=== PATIENT | female | born 1985 | race Caucasian/White ===

== ENCOUNTER 2016-06-25 00:23 | Inpatient (IN) | payer OTHER ==
[2016-06-25 01:11] LABS: ROM Internal QC QC Line Present
[2016-06-25 01:39] LABS: Hematocrit 35 % (35-47); Hemoglobin 11.6 g/dl (12.0-16.0); Mean Corpuscular HGB Conc 33 g/dl (31-36); Mean Corpuscular Hemoglobin 29 pg (27-31); Mean Corpuscular Volume 86 fL (80-97); Mean Platelet Volume 10 um3 (7.4-10.4); Red Blood Count 4.08 10^6/ul (4.0-5.4); Red Cell Distribution Width 14 % (10.5-15); White Blood Count 12.9 10^3/ul (3.5-10.8)
[2016-06-25] MEDS ORDERED: ceFOXitin 2 GM IVPREMIX* 2 GM/50 ML BAG ONE (01:50)
[2016-06-25] MEDS ORDERED: Sodium Citrate/Citric Acid* 15 ML UDC ONE (01:51)
[2016-06-25] MEDS ORDERED: Sodium Citrate/Citric Acid* 15 ML UDC PO ONE (02:06)
[2016-06-25] MEDS ORDERED: ceFOXitin 2 GM IVPREMIX* 2 GM/50 ML BAG IVPB ONE (02:06)
[2016-06-25] MEDS ORDERED: Morphine PF AMP (0.5MG/ML)* 5 MG/10 ML AMP ONE (02:38)
[2016-06-25] MEDS ORDERED: OXYTOCIN* 10 UNITS/ML 1 ML VIAL ONE (03:09)
[2016-06-25] MEDS ORDERED: Ondansetron INJ* 2 MG/ML VIAL ONE (03:14)
[2016-06-25] MEDS ORDERED: EPHEDrine (Pressors)* 50 MG/ML VIAL ONE (03:15)
[2016-06-25] MEDS ORDERED: Ketorolac INJ* 30 MG/ML 1 ML VIAL IV PRN (03:28)
[2016-06-25] MEDS ORDERED: Naloxone* 0.4 MG/ML 1 ML VIAL IV PRN (03:28)
[2016-06-25] MEDS ORDERED: oxyCODONE TAB* 5 MG TAB PO PRN (03:28)
[2016-06-25] MEDS ORDERED: Acetaminophen TAB* 325 MG PO PRN ×2 (03:28→19:00)
[2016-06-25] MEDS ORDERED: Nalbuphine* 20 MG/ML 1 ML VIAL IV PRN ×2 (03:30)
[2016-06-25] MEDS ORDERED: Glycerin ADULT SUPP PR PRN (03:57)
[2016-06-25] MEDS ORDERED: Dibucaine 1% 28.35 GM TUBE PR PRN (03:57)
[2016-06-25] MEDS ORDERED: Witch Hazel PAD* JAR TOPICAL PRN (03:57)
[2016-06-25] MEDS ORDERED: Oxytocin in LR* 20 UNITS/1,000 ML BAG IVPB SCH (04:00)
[2016-06-25] MEDS: Simethicone CHEW TAB* 80 MG PO SCH ×4 (08:05→21:05)
[2016-06-25] MEDS: Citalopram TAB* 40 MG PO SCH (08:05)
[2016-06-25] MEDS: Docusate CAP* 100 MG PO SCH ×3 (08:06→21:04)
[2016-06-25] MEDS: Ibuprofen TAB* 600 MG PO PRN ×3 (08:06→21:04)
[2016-06-25] MEDS ORDERED: diPHENhydraMINE PO* 50 MG PO PRN (11:13)
[2016-06-25] MEDS ORDERED: diPHENhydraMINE PO* 50 MG ONE (11:15)
--- NOTE | 2016-06-25 13:36 | OP ---
OPERATIVE REPORT: DATE OF OPERATION: 06/25/16 DATE OF : 85 SURGEON: Tapan Valles MD FURNACE TENDER: Nora Michele CNM ANESTHESIA: Spinal. PRE-OP DIAGNOSIS: Breech presentation, ruptured membranes, in early labor. POST-OP DIAGNOSIS: Breech presentation, ruptured membranes, in early labor. OPERATIVE PROCEDURE: Low transverse section. COMPLICATIONS: None. ESTIMATED BLOOD LOSS: 600 cc. FINDINGS: This is a 30-year-old 1, presented with spontaneous rupture of membranes at 11:30 p.m. and known breech. She was scanned and found to be still breech. At the time of , she had a viable female, Apgars were 9 and 9, weight was 7 pounds even. Normal appearing uterus, fallo pian tubes and ovaries. DESCRIPTION OF PROCEDURE: The patient identified and procedure identified as a low transverse shell mala section. The patient was taken to the operating room and prepped and draped in the usual fashio n in the left lateral recumbent position under spinal anesthesia. A Pfannenstiel incision was made in the abdomen, and carried down through fat, fascia and peritoneum. A transverse incision was made in the low uterine segment, extended laterally using the bandage scissors. The above was de livered through the incision in the breech extraction manner without difficulty. The cord was doubl y clamped and cut and the infant was handed to the awaiting professor of sociology. Cord blood was obtained. Placenta delivered spontaneously. The uterus was wiped out with a wet lap sponge. The uterine inci forest was closed using 0 Polysorb in a running fashion. A second layer was used to imbricate the fir st layer. The uterus was placed back into the abdominal cavity. The peritoneum was found to be hem ostatic. The peritoneum was then closed using 3-0 Polysorb in a running fashion. Good hemostasis w as achieved in the subrectus layers and the fascia was closed using 0 Polysorb in a running fashion. Good hemostasis was achieved in the subcu. Copious irrigation was utilized and suctioned out and the skin was closed with 4-0 Monocryl in a subcuticular fashion. All sponge and instrument counts w ere correct and the patient returned to the recovery room in stable condition. [id number]/[facility] #: [id number]
[2016-06-25] MEDS ORDERED: oxyCODONE/Acetamin 5/325 MG* TAB ONE (14:03)
[2016-06-25] MEDS ORDERED: oxyCODONE/Acetamin 5/325 MG* TAB PO PRN (14:30)
[2016-06-25] MEDS ORDERED: Zolpidem TAB* 5 MG PO PRN (19:00)
[2016-06-25] MEDS: oxyCODONE/Acetamin 5/325 MG* TAB PO PRN (23:49)
[2016-06-26] MEDS: Ibuprofen TAB* 600 MG PO PRN ×3 (03:38→16:24)
[2016-06-26] MEDS: oxyCODONE/Acetamin 5/325 MG* TAB PO PRN ×5 (04:46→21:37)
[2016-06-26 07:59] LABS: Hematocrit 31 % (35-47); Hemoglobin 10.4 g/dl (12.0-16.0); Mean Corpuscular HGB Conc 34 g/dl (31-36); Mean Corpuscular Hemoglobin 29 pg (27-31); Mean Corpuscular Volume 87 fL (80-97); Mean Platelet Volume 10 um3 (7.4-10.4); Red Blood Count 3.54 10^6/ul (4.0-5.4); Red Cell Distribution Width 14 % (10.5-15)
[2016-06-26] MEDS: Citalopram TAB* 40 MG PO SCH (08:25)
[2016-06-26] MEDS: Simethicone CHEW TAB* 80 MG PO SCH ×4 (08:25→21:37)
[2016-06-26] MEDS: Docusate CAP* 100 MG PO SCH ×3 (08:25→21:37)
[2016-06-26] MEDS: Ferrous Gluconate TAB* 324 MG TAB PO SCH ×2 (12:49→21:19)
[2016-06-27] MEDS: Ibuprofen TAB* 600 MG PO PRN ×4 (00:09→20:23)
[2016-06-27] MEDS: Citalopram TAB* 40 MG PO SCH (07:38)
[2016-06-27] MEDS: Docusate CAP* 100 MG PO SCH ×3 (07:38→20:24)
[2016-06-27] MEDS: oxyCODONE/Acetamin 5/325 MG* TAB PO PRN ×3 (07:38→20:24)
[2016-06-27] MEDS: Simethicone CHEW TAB* 80 MG PO SCH ×4 (07:39→20:24)
[2016-06-28] MEDS: Ibuprofen TAB* 600 MG PO PRN ×3 (04:07→17:32)
[2016-06-28] MEDS: oxyCODONE/Acetamin 5/325 MG* TAB PO PRN ×4 (04:41→17:33)
[2016-06-28 08:31] VITALS: BP 114/69
[2016-06-28] MEDS: Simethicone CHEW TAB* 80 MG PO SCH ×3 (08:55→17:33)
[2016-06-28] MEDS: Citalopram TAB* 40 MG PO SCH (08:56)
[2016-06-28] MEDS: Docusate CAP* 100 MG PO SCH ×2 (08:56→13:34)
== END 2016-06-28 18:04 | disposition home or self-care (01) | DRG 540 ==
LOC: MCHOBOUT 00:23 → MCHOB 01:15
PROVIDERS: ADMIT Obstetrics & Gynecology; ATTEND Obstetrics & Gynecology
PROC: 10D00Z1 Extraction of Products of Conception, Low, Open Approach (ICD-10-PCS; principal; 2016-06-25 02:41)
DX: O32.1XX0 Maternal care for breech presentation, not applicable or unspecified (principal); F33.9 Major depressive disorder, recurrent, unspecified; O99.344 Other mental disorders complicating childbirth; O42.02 Full-term premature rupture of membranes, onset of labor within 24 hours of rupture; F41.9 Anxiety disorder, unspecified; Z3A.38 38 weeks gestation of pregnancy; Z37.0 Single live birth
CPT/HCPCS: 36415; 76815; 84112; 85025; 85027; 86850; 86900; 86901; A9270-GY; J0694; J2405; J2590

== ENCOUNTER 2017-05-19 10:17 | Emergency (ER) | payer BC ==
[2017-05-19 11:06] VITALS: BP 104/64
--- NOTE | 2017-05-19 12:08 | UC ---
Respiratory Complaint HPI - HPI Summary HPI Summary: Patient presents with about one week of nonproductive cough, chest congestion and rhinitis. She denies fever, nausea, headache, body aches, sore throat, ear pain. No SOB. She is also concerned about given that she is several days late for her period this month. She has some mild beast tenderness. She has unprotected sex with her . - History of Current Complaint Chief Complaint: UCRespiratory Stated Complaint: COUGH Time Seen by Provider: 05/19/17 11:47 Hx Obtained From: Patient Hx Last Menstrual Period: 04/09 Onset/Duration: Gradual Onset, Lasting Days, Still Present Timing: Constant Severity Initially: Moderate Severity Currently: Moderate Pain Intensity: 0 Pain Scale Used: 0-10 Numeric Character: Cough: Nonproductive Aggravating Factors: Nothing Alleviating Factors: Nothing Associated Signs And Symptoms: Positive: URI, Nasal Congestion. Negative: Dyspnea, Fever, Wheezing - Allergies/Home Medications Allergies/Adverse Reactions: Allergies Allergy/AdvReac Type Severity Reaction Status Date / Time clindamycin Allergy Diarrhea Verified 05/19/17 11:06 PMH/Surg Hx/FS Hx/Imm Hx Psychological History: Anxiety - Surgical History Surgical History: Yes Surgery Procedure, Year, and Place: - Family History Known Family History: Negative: Hypertension - Social History Alcohol Use: None Substance Use Type: None Smoking Status (MU): Light Every Day Tobacco Smoker Type: Cigarettes Amount Used/How Often: 2pp Have You Smoked in the Last Year: No - quit prior to Household Exposure Type: Cigarettes Review of Systems Constitutional: Negative ENT: Nasal Discharge Respiratory: Cough Cardiovascular: Negative Gastrointestinal: Negative All Other Systems Reviewed And Are Negative: Yes Physical Exam Triage Information Reviewed: Yes Appearance: Well-Appearing, No Pain Distress, Well-Nourished Vital Signs: Initial Vital Signs Temp 98.1 F 05/19/17 11:01 Pulse 103 05/19/17 11:01 Resp 18 05/19/17 11:01 BP 104/64 05/19/17 11:01 Pulse Ox 98 05/19/17 11:01 Vital Signs Reviewed: Yes Eyes: Positive: Conjunctiva Clear ENT: Positive: Hearing grossly normal, Pharynx normal, TMs normal Neck: Positive: Supple, Nontender, No Lymphadenopathy Respiratory: Positive: No respiratory distress, No accessory muscle use, Wheezing - OCCASIONAL INSPIRATORY WHEEZE RIGHT SIDE. Negative: Decreased breath sounds Cardiovascular Exam: Normal Abdomen Description: Positive: Soft Musculoskeletal: Positive: No Edema Neurological: Positive: Alert Psychological: Positive: Age Appropriate Behavior Skin: Negative: rashes UC Diagnostic Evaluation - Laboratory O2 Sat by Pulse Oximetry: 98 Diagnostic Studies Comment: URINE POSITIVE Respiratory Course/Dx - Differential Dx/Diagnosis Provider Diagnoses: 1. ACUTE BRONCHITIS. 2. Discharge - Sign-Out/Discharge Documenting (check all that apply): Discharge - Discharge Plan Condition: Stable Disposition: HOME Prescriptions: Albuterol HFA INHALER* [Ventolin HFA Inhaler*] 2 puff INH Q4H PRN #1 mdi PRN Reason: Shortness Of Breath Inhaler, Assist Devices [Aerochamber Mini] 1 each MC Q4H #1 spacer Patient Education Materials: Acute Bronchitis (ED) Referrals: Chandni Orozco MD [Primary Care Provider] - If Needed Additional Instructions: YOUR SYMPTOMS ARE LIKELY VIRALLY MEDIATED AND SHOULD RESOLVE ON THEIR OWN WITH TIME. NO INDICATION FOR ANTIBIOTICS AT PRESENT. REST, HYDRATE, OTC MEDS NEEDED. WILL TREAT WITH INHALER TO HELP WITH AIRWAY INFLAMMATION. SEEK FOLLOW- UP IF YOU ARE NOT IMPROVING OVER THE NEXT 1-2 WEEKS. Your test today was positive. Be aware that illnesses tend to last longer during due to your immunocompromised state. Okay to take Tylenol for discomfort but no ibuprofen or naproxen products. Stay well hydrated. Start taking a vitamin with 200mg DHA. I like the [employer] brand. Go next door to [facility] right now to schedule your first appointment. - Billing Disposition and Condition Condition: STABLE Disposition: HOME
== END 2017-05-19 12:41 | disposition home or self-care (01) ==
LOC: UCEAST 10:17
DX: J20.9 Acute bronchitis, unspecified (principal); F41.9 Anxiety disorder, unspecified; Z33.1 Pregnant state, incidental; Z88.1 Allergy status to other antibiotic agents; F17.210 Nicotine dependence, cigarettes, uncomplicated
CPT/HCPCS: 84702; 99212; G0463

== ENCOUNTER 2018-01-14 02:00 | Inpatient (IN) | payer BC ==
[2018-01-14] MEDS ORDERED: Promethazine INJ(RESTRICTED)* 25 MG/ML 1 ML VIAL IV PRN (04:28)
[2018-01-14] MEDS ORDERED: Nalbuphine* 10 MG/ML 1 ML VIAL IV PRN (04:28)
--- NOTE | 2018-01-14 04:36 | HP ---
General Information - Reason for Visit Pt presents with gross SROM at midnight tonight. Was already having some ctx, and they have gotten more frequent since. Pain is only like menstrual cramps. Fluid was clear. Slight VB. Pt with h/o for a breech in 2017. Pt had planned a TOLAC if she went into labor. - General Information Maternal Age: 32 Grav: 2 Para: 1 SAB: 0 IEA: 0 Estimated Due Date: 01/16/18 Determined By: LMP Gestational Age in Weeks/Days: 39+5 Maternal Blood Type and Rh: A Positive - Results this Serology/RPR Result: Non-Reactive Rubella Result: Immune HBsAg Result: Negative HIV Result: Negative GBS Culture Result: Negative Past Medical History Delivery History: Hx C/Section, See Records Pertinent Past Medical History: See Records - depression/anxiety Pertinent Past Surgical History: See Records - Pertinent Family History: Non-Contributory - Antepartal Records Antepartal Records: Reviewed, Complicated by: - h/o C/S Review of Systems Constitutional: Comfortable CV Complaint: No Respiratory: Shortness of Breath: No Gastrointestinal: No Nausea/Vomiting, Normal Bowel Movement Genitourinary: Leaking Fluid, No Dysuria, No Bleeding Musculoskeletal: Contractions Neurological: No Headache, No Visual Changes Movement: Normal Exam Allergies/Adverse Reactions: Allergies clindamycin Allergy (Verified 05/19/17 11:06) Diarrhea T 98.7, BP 125/81, P78 - Measurements Height: 5 ft 2 in Weight: 150 lb Weight in lbs: 150.007148 Body Mass Index (BMI): 27.4 Pre- Weight: 125 lb Weight Gained This : 25 lbs and 0 ozs - Exam Breast: Breast Exam Deferred CVA: No CVA Tenderness Heart: Normal Rhythm/Heart Sounds HEENT: No Significant Findings Lungs: Clear Bilaterally Rectal: Rectal Exam Deferred - Abdominal Exam Abdomen Exam: Non-Tender, Fundal Height Consistent with Dates - Ultrasound/Biophysical Profile Ultrasound Status: Bedside Exam - Vertex presentation Targeted Exam Findings Estimated Weight: 7lb 5oz Cervical Exam: Fingertip Effacement: 60% Station: -2 Presenting Part: Vertex Membrane Status: Leaking Amniotic Fluid Evaluation: Gross Rupture Bleeding/Discharge: Bloody Show - mild EFM Findings - External Monitor Findings Baseline Heart Rate: 120 External Monitor Findings: Accelerations Present, No Pattern of Variable or Late Decelerations, Variability Moderate, Baseline Stable Contractions: Irregular, Mild Contraction Frequency: Q3-5 min Assessment/Plan - Assessment 39+5 wks with h/o presents with gross SROM about 4.5 hrs ago, very early labor. We discussed her plan, and after a lengthy discussion, she would like to continue with a trial of labor. We discussed the risks of a TOLAC including uterine rupture (<1% risk) and the possible need for an emergent . She understands the risk of injury to the from a uterine rupture is also low but cannot be eliminated. We will plan to keep her monitored the entire time she is in labor. Pt also understands that if at some point she changes her mind, we can still proceed with a C/S. All questions answered. - Obstetrical Risk Factors Obstetrical Risk Factors: Previous C/Section in Labor - Plan Plan: Admit - Anticipate Vaginal Delivery Plan Comment: Pt may want Nubain/Phenergan to help her sleep, so it has been ordered. - Date/Time of Admission Date of Admission: 01/14/18 Time of Admission: 04:41
[2018-01-14 04:56] LABS: ABS Basophils 0 10^3/ul (0-0.2); ABS Eosinophils 0 10^3/ul (0-0.6); ABS Lymphocytes 2.4 10^3/ul (1.0-4.8); ABS Monocytes 0.9 10^3/ul (0-0.8); ABS Neutrophils 10.7 10^3/ul (1.5-7.7); ABS Nucleated RBC 0 10^3/ul; Eosinophil % 0.2 % (0-6); Hematocrit 36 % (35-47); Hemoglobin 11.9 g/dl (12.0-16.0); Lymphocyte % 16.9 % (25-47); Mean Corpuscular HGB Conc 33 g/dl (31-36); Mean Corpuscular Hemoglobin 28 pg (27-31); Mean Corpuscular Volume 84 fL (80-97); Mean Platelet Volume 9.7 fL (7.4-10.4); Nucleated Red Blood Cells % 0; Platelet Count 201 10^3/ul (150-450); Red Blood Count 4.25 10^6/ul (4.00-5.40); Red Cell Distribution Width 14 % (10.5-15)
[2018-01-14] MEDS ORDERED: oxyCODONE/Acetamin 5/325 MG* TAB PO PRN (18:10)
[2018-01-14] MEDS ORDERED: ceFOXitin 2 GM IVPREMIX* 2 GM/50 ML BAG IVPB ONE (18:10)
[2018-01-14] MEDS ORDERED: Acetaminophen TAB* 325 MG PO PRN (18:10)
[2018-01-14] MEDS ORDERED: Witch Hazel PAD* JAR TOPICAL PRN (18:10)
[2018-01-14] MEDS ORDERED: ceFOXitin 2 GM IVPREMIX* 2 GM/50 ML BAG ONE (18:22)
[2018-01-14] MEDS ORDERED: fentaNYL* 50 MCG/ML 2 ML VIAL (100 MCG VIAL) ONE (18:32)
[2018-01-14] MEDS ORDERED: Morphine VIAL* 10 MG/ML 1 ML VIAL ONE (18:32)
[2018-01-14] MEDS ORDERED: Morphine PF AMP (0.5MG/ML)* 5 MG/10 ML AMP ONE (18:32)
[2018-01-14] MEDS ORDERED: KETAMINE HCL* 50 MG/ML 10 ML VIAL ONE (18:32)
[2018-01-14] MEDS ORDERED: Midazolam* 1 MG/ML 5 ML VIAL (5 MG) ONE (18:32)
[2018-01-14] MEDS ORDERED: Ketorolac INJ* 30 MG/ML 1 ML VIAL IV PUSH SCH (19:00)
[2018-01-14] MEDS ORDERED: DiMENhydriNATE IV* 50 MG/ML VIAL IV PUSH PRN (19:26)
[2018-01-14] MEDS ORDERED: fentaNYL* 50 MCG/ML 2 ML VIAL (100 MCG VIAL) IV PRN (19:26)
[2018-01-14] MEDS ORDERED: HYDROmorphone INJ1* 1 MG/ML SYRINGE IV PRN (19:26)
[2018-01-14] MEDS ORDERED: Naloxone* 0.4 MG/ML 1 ML VIAL IV PRN (19:26)
[2018-01-14] MEDS ORDERED: PROCHLORPERAZINE INJ 5 MG/ML 2 ML VIAL IV PRN (19:26)
[2018-01-14] MEDS ORDERED: HYDROmorphone INJ* 0.5 MG/0.5 ML SYRINGE IV PRN (20:00)
[2018-01-14] MEDS ORDERED: Dexamethasone IV* 4 MG/ML 1 ML (4 MG) ONE (20:04)
[2018-01-14] MEDS ORDERED: Ondansetron INJ* 2 MG/ML VIAL ONE (20:04)
[2018-01-14] MEDS ORDERED: Bupivacaine-MPF SPINAL* 7.5 MG/ML - 2ML AMP ONE (20:04)
[2018-01-14] MEDS ORDERED: EPHEDrine (Pressors)* 50 MG/ML VIAL ONE (20:04)
[2018-01-14] MEDS ORDERED: Scopolamine 1.5 mg* PATCH ONE (20:04)
[2018-01-14] MEDS ORDERED: Bupivacaine 0.25% SDV PF* 10 ML VIAL INJ ONE (20:04)
[2018-01-14] MEDS ORDERED: OXYTOCIN* 10 UNITS/ML 1 ML VIAL ONE (20:04)
[2018-01-14] MEDS ORDERED: Ketorolac INJ* 30 MG/ML 1 ML VIAL ONE (20:04)
[2018-01-14] MEDS ORDERED: PROCHLORPERAZINE INJ 5 MG/ML 2 ML VIAL ONE (20:04)
[2018-01-14] MEDS ORDERED: Phenylephrine INJ* 10 MG/ML 1 ML VIAL (10 MG) ONE (20:05)
[2018-01-14] MEDS: oxyCODONE/Acetamin 5/325 MG* TAB PO PRN (22:47)
[2018-01-14] MEDS: Docusate CAP* 100 MG PO SCH (22:47)
[2018-01-14] MEDS: Simethicone TAB* 80 MG TAB.CHEW PO SCH (22:47)
--- NOTE | 2018-01-15 00:51 | OP ---
ATE OF OPERATION: 01/14/18 - ROOM #105 DATE OF : 85 SURGEON: Justina Schwab MD LOG FEEDER: Emilee Caldwell CNM ANESTHESIOLOGIST: Dr. Keen. ANESTHESIA: Spinal. PRE-OP DIAGNOSIS: 39 + 5 weeks' gestation with spontaneous rupture of membranes and failed trial of labor after . POST-OP DIAGNOSIS: 39 + 5 weeks' gestation with spontaneous rupture of membranes and failed trial of labor after . OPERATIVE PROCEDURE: Repeat low transverse section. ESTIMATED BLOOD LOSS: 700 cc. URINE OUTPUT: 100 cc. IV FLUIDS: 1700 cc lactated ringers. MATERIALS TO LAB: Cord blood. INDICATIONS: This patient was a 32-year-old 2, para 1 who presented earlier this morning after she had spontaneous rupture of membranes and was in early labor. The patient's contractions were fairly frequent initially. The patient had a history of a previous section for a breech infant and during her had been counseled regarding her delivery options. We discussed them again when she presented and after discussion, she desired to continue laboring. Her cervix was barely 1 cm dilated on admission and about 14 hours later she had only progressed to 2 cm with contractions that were decreasing in frequency. At that point, the patient desired to discontinue this attempt at vaginal delivery and proceed to a . She was extensively counseled and consent was signed. FINDINGS: Normal appearing uterus, fallopian tubes, and ovaries. Moderate amount of adhesions from the bladder to the anterior and left uterus. Delivery was productive of a 7-pound male with Apgars of 9 and 9. Time of delivery was 1928. COMPLICATIONS: None. DESCRIPTION OF PROCEDURE: The risks, benefits, and alternatives were described to the patient, and informed consent was obtained. The patient was taken to the operating room with IV running, where spinal anesthesia was induced and found to be adequate. The patient was prepped and draped in the normal sterile fashion in the dorsal supine position with a leftward tilt. A Pfannenstiel skin incision was made with a scalpel through the patient's previous incision. This was carried down to the underlying fascia using the scalpel. The fascia was scored in the midline, and the incision was extended using Richardson scissors. The fascia was dissected off the underlying rectus muscles using blunt and sharp dissection. The rectus muscles were in the midline using dissection with a Kaylan clamp. The peritoneum was then entered sharply. A bladder blade was placed. After dissecting down the bladder from the anterior and left uterus, a bladder flap was created sharply using Metzenbaum scissors. A low transverse uterine incision was then made with the scalpel. This was carried down to the amniotic membranes. Clear fluid was present. The uterine incision was extended using blunt traction. The head was elevated to the level of the incision, and, with fundal pressure, the head delivered without difficulty. The shoulders then were also both delivered and the body followed. The had excellent tone and cried immediately on delivery. The cord was doubly clamped and cut. The infant was then handed to the awaiting pack mule worker. Cord blood was collected. The placenta was delivered with manual extraction. The uterus was then exteriorized and cleared of all clots and debris. The uterine incision was then reapproximated using 0 Vicryl in a running-locked fashion. A second layer of imbricating 0 Vicryl sutures was then also placed for good hemostasis. The posterior cul-de-sac was irrigated with saline. The uterus was then returned to the abdomen. The incision was reinspected and still noted to be hemostatic. The peritoneum was closed with 3-0 Vicryl in a running fashion. The fascia was closed with 0 Polysorb in a running fashion. The subcutaneous tissues were copiously irrigated and made hemostatic using the Bovie. The subcutaneous tissues were then reapproximated using 3-0 Vicryl in interrupted sutures. The skin was then closed with 4-0 Monocryl. Mastisol and steristrips were then applied. A sterile bandage was then placed over the incision. The patient tolerated the procedure well. Sponge, lap, and needle counts were correct x2. [id number]/[facility] #: [id number] [facility]
[2018-01-15] MEDS: Ketorolac INJ* 30 MG/ML 1 ML VIAL IV PUSH SCH ×3 (02:01→13:59)
[2018-01-15] MEDS: oxyCODONE/Acetamin 5/325 MG* TAB PO PRN ×3 (04:00→18:52)
[2018-01-15 06:40] LABS: ABS Basophils 0.1 10^3/ul (0-0.2); ABS Eosinophils 0 10^3/ul (0-0.6); ABS Lymphocytes 1.7 10^3/ul (1.0-4.8); ABS Monocytes 0.9 10^3/ul (0-0.8); ABS Neutrophils 18.9 10^3/ul (1.5-7.7); ABS Nucleated RBC 0 10^3/ul; Eosinophil % 0 % (0-6); Hematocrit 31 % (35-47); Hemoglobin 10.2 g/dl (12.0-16.0); Lymphocyte % 7.8 % (25-47); Mean Corpuscular HGB Conc 33 g/dl (31-36); Mean Corpuscular Hemoglobin 28 pg (27-31); Mean Corpuscular Volume 85 fL (80-97); Mean Platelet Volume 10.1 fL (7.4-10.4); Nucleated Red Blood Cells % 0; Platelet Count 182 10^3/ul (150-450); Red Blood Count 3.68 10^6/ul (4.00-5.40); Red Cell Distribution Width 14 % (10.5-15); White Blood Count 21.6 10^3/ul (3.5-10.8)
[2018-01-15] MEDS: Docusate CAP* 100 MG PO SCH ×3 (07:58→21:01)
[2018-01-15] MEDS: Simethicone TAB* 80 MG TAB.CHEW PO SCH ×4 (07:58→21:01)
[2018-01-15] MEDS ORDERED: Ferrous Gluconate TAB* 324 MG TAB PO SCH (09:00)
[2018-01-15] MEDS: Citalopram TAB* 10 MG PO SCH (10:08)
[2018-01-15] MEDS: Ibuprofen TAB* 600 MG PO PRN (21:01)
[2018-01-16] MEDS: oxyCODONE/Acetamin 5/325 MG* TAB PO PRN ×3 (00:31→20:19)
[2018-01-16] MEDS: Simethicone TAB* 80 MG TAB.CHEW PO SCH ×4 (07:41→21:01)
[2018-01-16] MEDS: Ibuprofen TAB* 600 MG PO PRN ×3 (07:41→23:30)
[2018-01-16] MEDS: Docusate CAP* 100 MG PO SCH ×3 (07:41→21:01)
[2018-01-16] MEDS: Citalopram TAB* 10 MG PO SCH (08:17)
[2018-01-17] MEDS: Docusate CAP* 100 MG PO SCH (07:39)
[2018-01-17] MEDS: oxyCODONE/Acetamin 5/325 MG* TAB PO PRN ×2 (07:39→13:45)
[2018-01-17] MEDS: Simethicone TAB* 80 MG TAB.CHEW PO SCH ×2 (07:39→12:11)
[2018-01-17 08:00] VITALS: BP 111/58
[2018-01-17] MEDS: Ibuprofen TAB* 600 MG PO PRN (10:58)
[2018-01-17] MEDS: Citalopram TAB* 10 MG PO SCH (12:10)
[2018-01-17] MEDS ORDERED: Scopolamine PATCH Remove* 1 NOTE MISC PATCH OFF ONE (19:27)
== END 2018-01-17 15:07 | disposition home or self-care (01) | DRG 540 ==
LOC: MCHOBOUT 02:00 → MCHOB 03:36
PROVIDERS: ADMIT Obstetrics & Gynecology; ATTEND Obstetrics & Gynecology
PROC: 10D00Z1 Extraction of Products of Conception, Low, Open Approach (ICD-10-PCS; principal; 2018-01-14 18:59)
DX: O66.41 Failed attempted vaginal birth after previous cesarean delivery (principal); O99.344 Other mental disorders complicating childbirth; F41.8 Other specified anxiety disorders; Z3A.39 39 weeks gestation of pregnancy; Z37.0 Single live birth
CPT/HCPCS: 36415; 85025; 86850; 86900; 86901; A9270-GY; J0694; J0780; J1100; J1885; J2250; J2270; J2300; J2405; J2550; J2590; J3010; J3490

== ENCOUNTER 2018-06-19 17:28 | Emergency (ER) | payer BC ==
[2018-06-19 18:47] VITALS: BP 123/87
[2018-06-19] MEDS ORDERED: Fluorescein Sodium TOPICAL* 1 MG TEST STRIP OPHTHALMIC ONE (19:16)
[2018-06-19] MEDS ORDERED: Tetracaine 0.5% OPTH.SOL 4 ML* 1 DROP BTL LEFT EYE ONE (19:16)
--- NOTE | 2018-06-19 19:18 | UC ---
Eye Complaint HPI - HPI Summary HPI Summary: Vision grossly intact. Tetracaine and fluorosceine instilled into left eye. Examined under magnification with Wood's lamp. Large corneal abrasion noted ( see diagram) that does involve the upper portion of her field of vision. Upper and lower lids everted. No FB noted. - History of Current Complaint Chief Complaint: UCEye Stated Complaint: EYE IRRITATION Time Seen by Provider: 06/19/18 19:10 Hx Obtained From: Patient Hx Last Menstrual Period: 04/09 Pain Intensity: 8 Eyes: 1 - Right eye 2 - Left eye 3 - Large corneal abrasion without evidence of FB - Allergies/Home Medications Allergies/Adverse Reactions: Allergies Allergy/AdvReac Type Severity Reaction Status Date / Time clindamycin AdvReac Diarrhea Verified 06/19/18 18:47 PMH/Surg Hx/FS Hx/Imm Hx Previously Healthy: Yes Psychological History: Depression - Surgical History Surgical History: Yes Surgery Procedure, Year, and Place: - Family History Known Family History: Positive: Non-Contributory - Social History Occupation: Employed Full-time Lives: With Family Alcohol Use: None Substance Use Type: None Smoking Status (MU): Former Smoker Type: Cigarettes Amount Used/How Often: 2pp Have You Smoked in the Last Year: No - quit prior to When Did the Patient Quit Smoking/Using Tobacco: 9 months ago Household Exposure Type: Cigarettes - Immunization History Most Recent Influenza Vaccination: 2018 Most Recent Pneumonia Vaccination: unknown Review of Systems All Other Systems Reviewed And Are Negative: Yes Constitutional: Positive: Negative Skin: Positive: Negative Eyes: Positive: Eye Redness, Photophobia, Other - Tearing, FB sensation. Negative: Blurred Vision, Diplopia ENT: Positive: Negative Respiratory: Positive: Negative Cardiovascular: Positive: Negative Gastrointestinal: Positive: Negative Genitourinary: Positive: Negative Musculoskeletal: Positive: Negative Neurological: Positive: Negative Is Patient Immunocompromised?: No Physical Exam Triage Information Reviewed: Yes Appearance: Well-Appearing, Well-Nourished, Pain Distress - Patient appears uncomfortable covering her left eye Vital Signs: Initial Vital Signs Temp 97.8 F 06/19/18 18:41 Pulse 85 06/19/18 18:41 Resp 18 06/19/18 18:41 BP 123/87 06/19/18 18:41 Pulse Ox 100 06/19/18 18:41 Vital Signs Reviewed: Yes Eyes: Positive: Other: - Conjunctival erythema with tearing. EOM intact. PERRL. Vision grossly intact. Tetracaine and fluorosceine instilled into left eye. Examined under magnification with Wood's lamp. Large corneal abrasion noted ( see diagram) that does involve the upper portion of her field of vision. Upper and lower lids everted. No FB noted. ENT: Positive: Normal ENT inspection Neck: Positive: Supple, Nontender, No Lymphadenopathy Respiratory: Positive: Lungs clear, Normal breath sounds, No respiratory distress Cardiovascular: Positive: RRR, No Murmur Abdominal Exam: Normal Musculoskeletal Exam: Normal Neurological Exam: Normal Eye Complaint Course/Dx - Course Course Of Treatment: 32-year-old female presents with complaints of left eye pain. States her daughter accidentally poked in her eye with the corner of a book earlier this afternoon. Complains of burning, foreign body sensation, tearing, and photophobia. Denies visual disturbances. Afebrile. Vital signs stable. Exam showed left eye conjunctival erythema with tearing. Extraocular eye movements intact. PERRL. Vision grossly intact. Tetracaine and fluorosceine instilled into left eye. Examined under magnification with Wood's lamp. Large corneal abrasion noted (see diagram) that does involve the upper portion of her field of vision. Upper and lower lids everted. No FB noted. She was given ibuprofen 600 mg PO for pain and erythromycin ophthalmic ointment was instilled and dispensed for home to be used 4 times a day for the next 5 days. She is to follow-up with ophthalmology within the next 2 days. She is to call first thing in the morning for an appointment. Anticipatory guidance and warning symptoms were reviewed with the patient. Verbalizes understanding and agrees with plan of care. - Differential Dx/Diagnosis Differential Diagnosis/HQI/PQRI: Corneal Abrasion, Foreign Body, Penetrating Injury Provider Diagnosis: Injury of conjunctiva and corneal abrasion of left eye w/o FB Discharge - Sign-Out/Discharge Documenting (check all that apply): Patient Departure All imaging exams completed and their final reports reviewed: No Studies - Discharge Plan Condition: Stable Disposition: HOME Patient Education Materials: Corneal Abrasion (ED) Referrals: Chandni Orozco MD [Primary Care Provider] - Deny Dejesus MD [Medical Doctor] - 2 Days (Call tomorrow morning for an appointment.) Additional Instructions: Your exam revealed an abrasion of the cornea of your right eye. Use the erythromycin ointment that was provided to you in the clinic. Instill a small strip to the inner lower eyelid and blink to spread the ointment around the eye. You will need to do this 4 times a day for the next 5 days. Use ibuprofen (Advil, Motrin) 600 mg (3 tabs) every 8 hours as needed for pain. You were given a dose of this in the clinic at 7:30 pm. Follow up with ophthalmology within 2 days for recheck of the eye. Call tomorrow morning for an appointment. Seek immediate medical attention in the emergency room if you have worsening eye pain despite taking pain medication, have visual loss or disturbances, swelling of the eye, or any worsening of symptoms. - Billing Disposition and Condition Condition: STABLE Disposition: Home
[2018-06-19] MEDS ORDERED: Erythromycin OPTH OINT* APPLIC OINT LEFT EYE ONE (19:33)
[2018-06-19] MEDS ORDERED: Ibuprofen TAB* 600 MG PO ONE (19:35)
== END 2018-06-19 19:55 | disposition home or self-care (01) ==
LOC: UCEAST 17:28
DX: S05.02XA Injury of conjunctiva and corneal abrasion without foreign body, left eye, initial encounter (principal); Z87.891 Personal history of nicotine dependence; Z88.8 Allergy status to other drugs, medicaments and biological substances; W50.0XXA Accidental hit or strike by another person, initial encounter
CPT/HCPCS: 99212; A9270-GY; G0463

== ENCOUNTER 2023-12-25 08:56 | Inpatient (IN) ==
[2023-12-25] MEDS: Lactated Ringers 1000 ml BAG 1,000 ML IV ONE (10:03)
[2023-12-25 10:16] LABS: ABS Basophils 0.1 10^3/uL (0.0-0.1); ABS Lymphocytes 1.9 10^3/uL (1.0-4.8); ABS Monocytes 0.8 10^3/uL (0.0-0.9); ABS Neutrophils 10.2 10^3/uL (1.5-7.6); Eosinophil % 0.3 %; Hematocrit 40.1 % (35-45); Hemoglobin 13.4 g/dL (11.5-14.3); Lymphocyte % 14.3 %; Mean Corpuscular Hgb Conc 33.5 g/dL (31-36); Mean Corpuscular Volume 86.6 fL (80-97); Mean Platelet Volume 10.6 fL (7.5-11.2); Platelet Count 226 10^3/uL (150-450); Red Blood Count 4.63 10^6/uL (3.63-4.92); Red Cell Distribution Width 13.9 % (12-17); White Blood Count 12.9 10^3/uL (3.8-11.8)
[2023-12-25] MEDS ORDERED: Nalbuphine 10 MG/ML 1 ML VIAL IV PRN (10:29)
[2023-12-25] MEDS ORDERED: Lidocaine 1% VIAL 10 MG/ML 30 ML VIAL INJ PRN (10:29)
[2023-12-25] MEDS ORDERED: Prochlorperazine 5 mg/ml 2 ml VIAL (10 mg) IV PRN ×2 (10:29→14:28)
[2023-12-25] MEDS: Terbutaline INJ 1 MG/ML 1 ml VIAL SUBCUT ONE (10:51)
[2023-12-25] MEDS: Lactated Ringers 1000 ml BAG 1,000 ML IV SCH (10:56)
[2023-12-25 11:32] LABS: Urine Benzodiazepine Screen None Detected (None Detect); Urine Cannabinoids Screen None Detected (None Detect); Urine Opiates Screen None Detected (None Detect)
[2023-12-25] MEDS: Buffered Lidocaine 1% SYRIN 1 ml INTRADERM ONE (12:14)
[2023-12-25] MEDS: Sodium Citrate/Citric Acid LIQ 15 ML UDC ONE (12:27)
[2023-12-25] MEDS: Sodium Citrate/Citric Acid LIQ 15 ML UDC PO ONE (12:47)
[2023-12-25] MEDS ORDERED: Acetaminophen IV 1 GM/100ML 1,000 MG/100 ML BAG IV ONE (13:08)
[2023-12-25] MEDS ORDERED: Ondansetron 4 mg VIAL 2 MG/ML 2 ml VIAL ONE (13:09)
[2023-12-25] MEDS: ceFOXitin 2 GM IVPREMIX 2 GM/50 ML BAG IVPB ONE (13:40)
[2023-12-25] MEDS ORDERED: Oxytocin 10 UNITS/ML 1 ML VIAL ONE (14:11)
[2023-12-25] MEDS ORDERED: fentaNYL 100 mcg/2 ml 50 MCG/ML VIAL IV PRN (14:28)
[2023-12-25] MEDS ORDERED: HYDROmorphone 1 MG/1 ML SYRINGE IV PRN (14:28)
[2023-12-25] MEDS ORDERED: Naloxone 0.4 mg VIAL 0.4 mg/ml 1 ml VIAL IV PRN (14:28)
[2023-12-25] MEDS ORDERED: Dexamethasone IV 4 MG/ML VIAL 1 ml VIAL ONE (14:35)
[2023-12-25] MEDS ORDERED: Witch Hazel PAD JAR TOPICAL PRN (14:57)
[2023-12-25] MEDS ORDERED: Dibucaine 1% OINT 28.35 GM TUBE PR PRN (14:57)
[2023-12-25] MEDS ORDERED: Glycerin ADULT 2.4 gm SUPP PR PRN (14:57)
[2023-12-25] MEDS ORDERED: Lactated Ringers 1000 ml BAG 1,000 ML IV SCH (15:00)
[2023-12-25] MEDS ORDERED: Ondansetron 4 mg VIAL 2 MG/ML 2 ml VIAL IV PRN (16:18)
[2023-12-25] MEDS ORDERED: Naloxone 0.4 mg VIAL 0.4 mg/ml 1 ml VIAL IV PUSH PRN (16:18)
[2023-12-25] MEDS ORDERED: Acetaminophen IV 1 GM/100ML 1,000 MG/100 ML BAG IV PRN (16:18)
[2023-12-25] MEDS ORDERED: Metoclopramide 5 MG/ML VIAL (10 mg) IV PRN (16:18)
[2023-12-25] MEDS: Oxytocin in LR 20,000 MILLI.UNIT/1,000 ML BAG IV SCH (17:20)
[2023-12-26 06:52] LABS: ABS Basophils 0.1 10^3/uL (0.0-0.1); ABS Lymphocytes 1.9 10^3/uL (1.0-4.8); ABS Monocytes 1.2 10^3/uL (0.0-0.9); ABS Neutrophils 11.1 10^3/uL (1.5-7.6); Eosinophil % 0.2 %; Hematocrit 30.2 % (35-45); Hemoglobin 10.3 g/dL (11.5-14.3); Lymphocyte % 13.6 %; Mean Corpuscular Hemoglobin 29.3 pg (27-33); Mean Platelet Volume 10.5 fL (7.5-11.2); Platelet Count 149 10^3/uL (150-450); Red Blood Count 3.51 10^6/uL (3.63-4.92); Red Cell Distribution Width 13.8 % (12-17); White Blood Count 14.3 10^3/uL (3.8-11.8)
[2023-12-28 08:07] VITALS: BP 131/72
== END 2023-12-28 12:27 | disposition home or self-care (01) | DRG 540 ==
LOC: MCHOBOUT 08:56 → MCHOB 10:13
PROVIDERS: ADMIT Obstetrics & Gynecology; ATTEND Obstetrics & Gynecology